=== PATIENT | male | born 1965 | race Caucasian/White ===

== ENCOUNTER 2018-06-15 20:08 | Emergency (ER) | payer MEDICAID ==
[~2018-06-15] VITALS: Ht 165.1 cm; Wt 79.4 kg
[2018-06-15 20:12] VITALS: BP 147/107
--- NOTE | 2018-06-15 20:17 | NUR ---
PT AMBULATORY TO WR W/ STEADY GAIT IN STABLE CONDITION.
--- NOTE | 2018-06-15 20:56 | NUR ---
TO ER BED 12
--- NOTE | 2018-06-15 21:13 | NUR ---
PT PRESENTED ER WITH C/O PAIN EPIGASTRIC AND SOB X 3 WEEKS INTERMITTENT. PT IS A/O X 4. PAIN LEVEL IS 3/10. NKA, AND MED. HX IS APPENDECTOMY AND HERNIA SURGERY. O2 SAT. IN ER IS 94 % ON RA.DENIES N/V/D; SKIN IS PINK/WARM/DRY; AAOX4 WITH EVEN AND STEADY GAIT; LUNGS CLEAR BL; HR EVEN AND REGULAR; ; PATIENT STATES PAIN OF 3/10 AT THIS TIME; VSS; PATIENT POSITIONED FOR COMFORT; HOB ELEVATED; BEDRAILS UP X2; BED DOWN. ER MD MADE AWARE OF PT STATUS.
[2018-06-15 23:23] VITALS: BP 129/86
--- NOTE | 2018-06-15 23:24 | NUR ---
Patient discharged with v/s stable. Written and verbal after care instructions given and explained. Patient alert, oriented and verbalized understanding of instructions. Ambulatory with steady gait. All questions addressed prior to discharge. ID band removed. Patient advised to follow up with PMD. Rx of MOTRIN, AZITHROMYICN given. Patient educated on indication of medication including possible reaction and side effects. Opportunity to ask questions provided and answered.
== END 2018-06-15 23:23 | disposition home or self-care (01) ==
LOC: MED 20:08
DX: J18.9 Pneumonia, unspecified organism (principal); F17.290 Nicotine dependence, other tobacco product, uncomplicated
CPT/HCPCS: 71046; 81002; 99284